=== PATIENT | male | born 1995 | race African-American/Black ===

== ENCOUNTER 2020-10-03 14:00 | Emergency (ER) | payer MEDICAID ==
[~2020-10-03] VITALS: Ht 185.4 cm; Wt 87.0 kg
[2020-10-03] MEDS ORDERED: CLONIDINE 0.1MG TABLET PO ONE (18:15)
[2020-10-03] MEDS ORDERED: HYDROXYZINE 25MG TABLET PO ONE (18:15)
[2020-10-03] MEDS ORDERED: SODIUM CHLORIDE 0.9% 2,000 ML IV ONE (18:15)
[2020-10-03] MEDS ORDERED: METFORMIN HCL 500MG TABLET PO ONE (18:15)
[2020-10-04] MEDS ORDERED: CLON0.2T PO (00:06)
[2020-10-04] MEDS ORDERED: HYDR-459 PO (00:06)
[2020-10-04 00:22] VITALS: BP 120/78
== END 2020-10-04 01:02 | disposition home or self-care (01) ==
LOC: ER 14:00
DX: F11.13 Opioid abuse with withdrawal (principal); E11.65 Type 2 diabetes mellitus with hyperglycemia; R03.0 Elevated blood-pressure reading, without diagnosis of hypertension; Z79.84 Long term (current) use of oral hypoglycemic drugs
CPT/HCPCS: 82962; 96360; 96361; 99285; J7030; Z7610